=== PATIENT | male | born 1985 | race Caucasian/White ===

== ENCOUNTER 2019-02-27 16:58 | Emergency (ER) | payer OTHER ==
[~2019-02-27] VITALS: Ht 182.9 cm; Wt 98.4 kg
[2019-02-27 17:00] VITALS: BP 151/99
[2019-02-27] MEDS ORDERED: PRED20TA PO (17:31)
--- NOTE | 2019-02-27 17:31 | PHYS DOC ---
Past History Past Medical History: No Pertinent History Past Surgical History: No Surgical History Smoking: Non-smoker Alcohol Use: Occasionally Drug Use: None Adult General Chief Complaint Chief Complaint: ELBOW PROBLEM HPI HPI 33-year-old male presents with report of left elbow swelling and increased warmth which started yesterday. Patient reports on Thursday he had been overexerting with chopping wood all day. Denies known trauma to area. Denies fever or chills. Denies prior injury. Review of Systems Review of Systems Constitutional: Denies fever or chills Eyes: Denies redness or eye pain HENT: Denies nasal congestion or sore throat Respiratory: Denies cough or shortness of breath Cardiovascular: Denies chest pain or palpitations GI: Denies abdominal pain, nausea, or vomiting : Denies dysuria or hematuria Musculoskeletal: Denies back pain; reports left elbow pain and swelling Integument: Denies rash or skin lesions; reports some right elbow erythema Neurologic: Denies headache, focal weakness or sensory changes Complete systems were reviewed and found to be within normal limits, except as documented in this note. Current Medications Current Medications Current Medications Medications (Trade) Dose Ordered Sig/Benedict Start Time Stop Time Status Last Admin Dose Admin Dexamethasone (Decadron) 10 mg 1X ONCE 02/27/19 17:30 02/27/19 17:31 UNV Ketorolac Tromethamine (Toradol 30mg Vial) 30 mg 1X ONCE 02/27/19 17:30 02/27/19 17:31 UNV Allergies Allergies Allergies Coded Allergies Type Severity Reaction Last Updated Verified No Known Drug Allergies 02/27/19 No Physical Exam Physical Exam Constitutional: Well developed, well nourished, no acute distress, non-toxic appearance HENT: Normocephalic, atraumatic, oropharynx moist Eyes: Conjunctiva normal, no discharge Neck: Normal range of motion, no tenderness, supple Cardiovascular: Left radial pulses +2, cap refill less than 2 seconds Lungs & Thorax: No respiratory distress Skin: Warm, dry, mild erythema to left olecranon Extremities: Tenderness to palpation of left olecranon bursa, significant swelling/fluctuance, warmth, and mild erythema consistent for acute bursitis Neurologic: Alert and oriented X 3, no focal deficits noted Psychologic: Affect normal, judgement normal Current Patient Data Vital Signs Vital Signs Date Time Temp Pulse Resp B/P (MAP) Pulse Ox O2 Delivery O2 Flow Rate FiO2 02/27/19 17:00 98.2 85 16 98 Room Air EKG EKG [] Radiology/Procedures Radiology/Procedures [] Course & Med Decision Making Course & Med Decision Making Patient presents with history of present illness and physical exam concerning for left sided olecranon bursitis. Symptomatic treatment provided with ice pack, IM ketorolac, and oral dexamethasone. Derian bandage applied. Patient stable for discharge with outpatient follow-up with PCP/orthopedics. Orthopedic referral provided. Discussed findings and plan with patient and family, who acknowledge understanding and agreement. Dragon Disclaimer Dragon Disclaimer This electronic medical record was generated, in whole or in part, using a voice recognition dictation system. Splinting Splinting : Location: Left elbow Pre-Made Type: DERIAN bandage Pre-Proc Neuro Vasc Exam: normal Post-Proc Neuro Vasc Exam: normal, unchanged from pre-exam Departure Departure: Impression: Primary Impression: Olecranon bursitis of left elbow Disposition: 01 HOME, SELF-CARE Condition: STABLE Referrals: PCPLOW (PCP) FRANCISCO FERRER MD Patient Instructions: Olecranon Bursitis, [id number] Additional Instructions: Obtain KT tape and use [employer] video on how to place. Use over the counter Ibuprofen 600mg (three over the counter tabs) three times daily as needed for pain and discomfort. May use over the counter Tylenol (acetaminophen) 325-500mg tabs as needed between doses of ibuprofen for pain. ICE area 20 min on and then off for next 20 min for next few days. Scripts Prednisone (PREDNISONE) 20 Mg Tablet 2 TAB PO DAILY for Bursitis, #8 TAB Prov: IMTIAZ ROSADO DO 02/27/19 IMTIAZ ROSADO DO Feb 27, 2019 17:31
[2019-02-27] MEDS ORDERED: DEXAMETHASONE 4 MG TABLET PO ONE (18:00)
[2019-02-27] MEDS ORDERED: KETOROLAC 30 MG/ML VIAL. IM ONE (18:00)
== END 2019-02-27 17:40 | disposition home or self-care (01) ==
LOC: ER 16:58
DX: M70.22 Olecranon bursitis, left elbow (principal); Y93.89 Activity, other specified
CPT/HCPCS: 96372; 99283; J1885; J8540

== ENCOUNTER 2019-03-22 11:16 | Inpatient (IN) | payer OTHER ==
[~2019-03-22] VITALS: Ht 182.9 cm; Wt 102.2 kg
[~2019-03-22 11:16] MED LIST: PRED20TA PO
[2019-03-22] MEDS ORDERED: ONDANSETRON PF 4 MG/2 ML VIAL. ONE (11:47)
[2019-03-22] MEDS ORDERED: IV NORMAL SALINE 1,000ML 1,000 ML IV ONE (12:00)
[2019-03-22] MEDS ORDERED: ONDANSETRON PF 4 MG/2 ML VIAL. IVP ONE (12:00)
--- NOTE | 2019-03-22 12:11 | PHYS DOC ---
Past History Past Medical History: Other Additional Past Medical Histor: left elbow infection Past Surgical History: Other Additional Past Surgical Histo: testicular torsion Smoking: Non-smoker Alcohol Use: Occasionally Drug Use: None Adult General Chief Complaint Chief Complaint: NAUSEA/VOMITING/DIARRHEA HPI HPI 33-year-old male presents with vomiting and diarrhea. He woke up at 5:30 this mo rning with diarrhea and stomach cramping. Multiple episodes of diarrhea since that time and has had several episodes of vomiting. He is concerned about food poisoning. He did eat bratwurst overcooked on the grill yesterday for dinner. They were cooked one day prior to consumption. He has been having chills, but no measured fever. He is unable to keep down any liquids or solids. Review of Systems Review of Systems Constitutional: Denies fever or chills [] Eyes: Denies change in visual acuity, redness, or eye pain [] HENT: Denies nasal congestion or sore throat [] Respiratory: Denies cough or shortness of breath [] Cardiovascular: No additional information not addressed in HPI [] GI: Diffuse abdominal pain, nausea, vomiting, diarrhea [] : Denies dysuria or hematuria [] Musculoskeletal: Denies back pain or joint pain [] Integument: Denies rash or skin lesions [] Neurologic: Denies headache, focal weakness or sensory changes [] Endocrine: Denies polyuria or polydipsia [] All other systems were reviewed and found to be within normal limits, except as documented in this note. Current Medications Current Medications Current Medications Medications (Trade) Dose Ordered Sig/Benedict Start Time Stop Time Status Last Admin Dose Admin Ondansetron HCl (Zofran) 4 mg 1X ONCE 03/22/19 12:00 03/22/19 12:01 DC 03/22/19 11:50 4 MG Sodium Chloride 1,000 ml @ 1,000 mls/hr 1X ONCE 03/22/19 12:00 03/22/19 12:59 03/22/19 11:50 1,000 MLS/HR Allergies Allergies Allergies Coded Allergies Type Severity Reaction Last Updated Verified No Known Drug Allergies 03/22/19 No Physical Exam Physical Exam Constitutional: Well developed, well nourished, moderate acute distress, non- toxic appearance. [] HENT: Normocephalic, atraumatic, bilateral external ears normal, oropharynx dry, no oral exudates, nose normal. [] Eyes: PERRLA, EOMI, conjunctiva normal, no discharge. [] Neck: Normal range of motion, no tenderness, supple, no stridor. [] Cardiovascular:Heart rate regular rhythm, no murmur [] Lungs & Thorax: Bilateral breath sounds clear to auscultation [] Abdomen: Bowel sounds normal, soft, no tenderness, no masses, no pulsatile masses. [] Skin: Warm, pale, dry, no erythema, no rash. [] Back: No tenderness, no CVA tenderness. [] Extremities: No tenderness, no cyanosis, no clubbing, ROM intact, no edema. [] Neurologic: Alert and oriented X 3, normal motor function, normal sensory fun ction, no focal deficits noted. [] Psychologic: Affect normal, judgement normal, mood normal. [] Current Patient Data Vital Signs Vital Signs Date Time Temp Pulse Resp B/P (MAP) Pulse Ox O2 Delivery O2 Flow Rate FiO2 03/22/19 11:54 99 24 102/69 (80) 100 Room Air 03/22/19 11:26 99.2 EKG EKG [] Radiology/Procedures Radiology/Procedures [] Impressions: AP and Lateral Views of the Chest 03/22/2019 1:21 PM Indication: Acidosis Comparison: None Findings: Low lung volumes are noted which augment the cardiomediastinal silhouette and pulmonary vasculature. No pneumothorax or pleural effusion is identified. Heart size is within normal limits. No focal infiltrates are seen. No acute cardiopulmonary process is seen. IMPRESSION: Low lung volumes. Otherwise unremarkable chest radiograph Electronically signed by: Madhav Olsen MD (03/22/2019 1:58 PM) [id number] DICTATED AND SIGNED BY: MADHAV OLSEN MD DATE: 03/22/19 [id number] CC: GO HEATH DO; PCP,NO ~ EXAM: Abdomen and pelvis CT with intravenous contrast. HISTORY: Vomiting. Pain. TECHNIQUE: Computed tomographic images of the abdomen and pelvis were obtained following the administration of intravenous contrast. Multiplanar reformatting was performed. *One or more of the following individualized dose reduction techniques were utilized for this examination: 1. Automated exposure control. 2. Adjustment of the mA and/or kV according to patient size. 3. Use of iterative reconstruction technique. COMPARISON: None. FINDINGS: Evaluation of the lower thorax demonstrates no infiltrate or pleural effusion. The heart is normal in size. There are 2 tiny suspected cyst within the right hepatic lobe. These are too small to characterize. The gallbladder, pancreas, and adrenal glands are unremarkable. There are splenules adjacent to an otherwise unremarkable spleen. The kidneys are unremarkable. There is no evidence of appendicitis. There is nonspecific fluid-filled colon, a finding which can be seen with diarrhea. There is no evidence of acute colitis. There is no evidence of bowel obstruction. There is no lymphadenopathy. The aorta is normal in caliber. The bladder is nearly empty. There are prostate calcifications. There is no suspicious osseous lesion. There are few benign bone islands. IMPRESSION: 1. Nonspecific fluid-filled colon. This can be seen with diarrhea. There is no evidence of colitis. 2. Suspected tiny hepatic cysts, difficult to characterize given their size. Electronically signed by: Naomie Beltran MD (03/22/2019 2:06 PM) [facility] DICTATED AND SIGNED BY: NAOMIE BELTRAN MD DATE: 03/22/19 1401 CC: GO HEATH DO; PCP,LOW ~ Course & Med Decision Making Course & Med Decision Making Pertinent Labs and Imaging studies reviewed. (See chart for details) The patient appeared quite pale on arrival. I ordered a liter of normal saline and Zofran IV. The patient's labs are significant for a lactic acid of 4.3. His anion gap is 15. We will give him 30 mL/kg of fluids. The patient has not been drinking alcohol lately. He has had periods of heavy beer drinking, but not for over a month. No alcohol the last couple of days. He denies any drug use. He does not smoke. His CT of the abdomen and pelvis is unremarkable. His chest x- rays negative for acute findings. I will admit the patient for lactic acidosis. I spoke with Dr. Plascencia who has agreed to admit the patient. [] 37 minutes of critical care time was spent on this patient exclusive of other billable procedures. Dragon Disclaimer Dragon Disclaimer This electronic medical record was generated, in whole or in part, using a voice recognition dictation system. Departure Departure: Impression: Primary Impression: Lactic acidosis Disposition: ADMITTED INPATIENT Admitting Physician: Dominguez Plascencia Condition: STABLE Referrals: PCPLOW (PCP) Sepsis Assessment Date and Time of Assessment Date: Mar 22, 2019 Time: 12:57 Vital Signs Vital Signs Vital Signs Date Time Temp Pulse Resp B/P (MAP) Pulse Ox O2 Delivery O2 Flow Rate FiO2 03/22/19 11:54 99 24 102/69 (80) 100 Room Air 03/22/19 11:26 99.2 Respirations Respiratory Effort: Normal Respiratory Pattern: Normal Cardiovascular Pulse Rhythm: Regular HEART: No murmurs noted Lung Sounds Breath Sounds: Clear Capillary Refill Capillary Refill: Rt Hand < 3 seconds Peripheral Pulse Pulse Location: Monitor Pulse Assessment Method: Monitor Integumentary Skin: Dry Skin Moisture: Dry Skin Color: pallor Fingernail Color: WNL Sepsis Assessment Date and Time of Assessment Date: Mar 22, 2019 Time: 14:29 Fluid Challenge: Is the fluid challenge complet: No IBW Target Volume Used: No BMI > 30: Yes Blood Culture TIme: 12:12 Time Antibiotics Given: 14:08 Vital Signs Vital Signs Vital Signs Date Time Temp Pulse Resp B/P (MAP) Pulse Ox O2 Delivery O2 Flow Rate FiO2 03/22/19 11:54 99 24 102/69 (80) 100 Room Air 03/22/19 11:26 99.2 Temperature Source: Axillary Respirations Respiratory Effort: Normal Respiratory Pattern: Normal Cardiovascular Pulse Rhythm: Regular Heart: Nml rate, reg. rhythm Lung Sounds Breath Sounds: Clear Capillary Refill Capillary Refill: Rt Hand < 3 seconds Peripheral Pulse Pulse Location: Monitor Pulse Strength: Normal (2+) Pulse Assessment Method: Monitor Integumentary Skin: Warm Skin Moisture: Dry Skin Turgor: Normal Skin Color: no edema Fingernail Color: WNL GO HEATH DO Mar 22, 2019 12:11
[2019-03-22 12:17] LABS: ALBUMIN 3.9 g/dL (3.4-5.0); CALCIUM 9.5 mg/dL (8.5-10.1); CREATININE 1.2 mg/dL (0.7-1.3); GFR 68.9; POTASSIUM 4.2 mmol/L (3.5-5.1); TOTAL BILIRUBIN 1.1 mg/dL (0.2-1.0); TOTAL PROTEIN 7.7 g/dL (6.4-8.2)
[2019-03-22 12:24] LABS: BASO % 0 % (0-3); EOS # 0.1 x10^3/uL (0.0-0.7); EOS % 1 % (0-3); HEMATOCRIT 51.2 % (39.0-53.0); HEMOGLOBIN 17.1 g/dL (13.0-17.5); LYMPH # 0.3 x10^3/uL (1.0-4.8); LYMPH % 3 % (24-48); MEAN CORPUSCULAR HEMOGLOBIN 31 pg (25-35); MEAN CORPUSCULAR HGB CONC 33 g/dL (31-37); MEAN CORPUSCULAR VOLUME 92 fL (79-100); MONO # 0.5 x10^3/uL (0.0-1.1); MONO % 5 % (0-9); NEUT # 9.8 x10^3uL (1.8-7.7); NEUT % 91 % (31-73); PLATELET COUNT 219 x10^3/uL (140-400); RED BLOOD COUNT 5.56 x10^6/uL (4.30-5.70); RED CELL DISTRIBUTION WIDTH 12.9 % (11.5-14.5); WHITE BLOOD COUNT 10.7 x10^3/uL (4.0-11.0)
[2019-03-22] MEDS ORDERED: IOHEXOL 300 MG/ML 75 ML VIAL. IV ONE (13:30)
[2019-03-22 13:34] LABS: BACTERIA,URINE 0 /HPF (0-FEW); BILIRUBIN,URINE NEG (NEG); CLARITY,URINE HAZY; COLOR,URINE AMBER; GLUCOSE,URINE NEG (NEG); NITRITE,URINE NEG (NEG); RBC,URINE OCC /HPF (0-2); UROBILINOGEN,URINE 0.2 mg/dL (0.2 mg/dL)
[2019-03-22 13:36] LABS: AMPHETAMINE/METHAMPHETAMINE NEG (NEG); BARBITURATES NEG (NEG); BENZODIAZEPINES NEG (NEG); CANNABINOIDS NEG (NEG); COCAINE NEG (NEG); METHADONE NEG (NEG); OPIATES NEG (NEG); PHENCYCLIDINE NEG (NEG)
[2019-03-22] MEDS: NORMAL SALINE IV SCH ×4 (13:54→16:00)
--- NOTE | 2019-03-22 14:01 | RAD ---
AP and Lateral Views of the Chest 03/22/2019 1:21 PM Indication: Acidosis Comparison: None Findings: Low lung volumes are noted which augment the cardiomediastinal silhouette and pulmonary vasculature. No pneumothorax or pleural effusion is identified. Heart size is within normal limits. No focal infiltrates are seen. No acute cardiopulmonary process is seen. IMPRESSION: Low lung volumes. Otherwise unremarkable chest radiograph Electronically signed by: Madhav Sheppard MD (03/22/2019 1:58 PM) [facility]
[2019-03-22] MEDS ORDERED: IV NORMAL SALINE 50ML 50 ML ONE (14:02)
[2019-03-22] MEDS ORDERED: cefTRIAXone SODIUM 1 GM VIAL ONE (14:02)
--- NOTE | 2019-03-22 14:09 | RAD ---
EXAM: Abdomen and pelvis CT with intravenous contrast. HISTORY: Vomiting. Pain. TECHNIQUE: Computed tomographic images of the abdomen and pelvis were obtained following the administration of intravenous contrast. Multiplanar reformatting was performed. *One or more of the following individualized dose reduction techniques were utilized for this examination: 1. Automated exposure control. 2. Adjustment of the mA and/or kV according to patient size. 3. Use of iterative reconstruction technique. COMPARISON: None. FINDINGS: Evaluation of the lower thorax demonstrates no infiltrate or pleural effusion. The heart is normal in size. There are 2 tiny suspected cyst within the right hepatic lobe. These are too small to characterize. The gallbladder, pancreas, and adrenal glands are unremarkable. There are splenules adjacent to an otherwise unremarkable spleen. The kidneys are unremarkable. There is no evidence of appendicitis. There is nonspecific fluid-filled colon, a finding which can be seen with diarrhea. There is no evidence of acute colitis. There is no evidence of bowel obstruction. There is no lymphadenopathy. The aorta is normal in caliber. The bladder is nearly empty. There are prostate calcifications. There is no suspicious osseous lesion. There are few benign bone islands. IMPRESSION: 1. Nonspecific fluid-filled colon. This can be seen with diarrhea. There is no evidence of colitis. 2. Suspected tiny hepatic cysts, difficult to characterize given their size. Electronically signed by: Naomie Stafford MD (03/22/2019 2:06 PM) [facility]
--- NOTE | 2019-03-22 15:48 | NUR ---
The patient, MUKESH GONGORA, 33 y/o, M admitted by KATERINA LOPEZ MD, was given written information regarding hospital policies, unit procedures and contact persons. Valuables were checked and documented.
[2019-03-22 16:01] VITALS: BP 119/74
[2019-03-22] MEDS: IV NORMAL SALINE 1,000ML 1,000 ML IV SCH (16:15)
[2019-03-22] MEDS: ACETAMINOPHEN 325 MG TABLET PO PRN (18:29)
[2019-03-22] MEDS: ONDANSETRON PF 4 MG/2 ML VIAL. IVP PRN (19:03)
[2019-03-22 19:36] VITALS: BP 100/63
[2019-03-22 23:30] VITALS: BP 102/49
[2019-03-23] MEDS: ONDANSETRON PF 4 MG/2 ML VIAL. IVP PRN ×5 (00:13→22:37)
[2019-03-23] MEDS: ACETAMINOPHEN 325 MG TABLET PO PRN ×3 (00:14→20:10)
[2019-03-23] MEDS: IV NORMAL SALINE 1,000ML 1,000 ML IV SCH (00:15)
[2019-03-23 05:14] VITALS: BP 133/66
[2019-03-23 07:56] LABS: HEMATOCRIT 41.6 % (39.0-53.0); HEMOGLOBIN 13.8 g/dL (13.0-17.5); RED BLOOD COUNT 4.52 x10^6/uL (4.30-5.70); RED CELL DISTRIBUTION WIDTH 13.2 % (11.5-14.5)
[2019-03-23 08:07] LABS: CALCIUM 7.9 mg/dL (8.5-10.1); CREATININE 1.1 mg/dL (0.7-1.3); GFR 76.2; POTASSIUM 3.7 mmol/L (3.5-5.1)
[2019-03-23 10:39] VITALS: BP 116/74
[2019-03-23] MEDS ORDERED: BISMUTH SUBSALICYLATE 262 MG/15 ML ORAL.SUSP 236ML BOTTLE. PO PRN (12:00)
[2019-03-23] MEDS: CIPROFLOXACIN 400MG PREMIX 200 ML IV SCH (12:10)
--- NOTE | 2019-03-23 12:32 | HP ---
ADMIT DATE: 03/22/2019 HISTORY OF PRESENT ILLNESS: The patient is a 33-year-old male patient who came to the Emergency Room yesterday with recurrent bouts of nausea, vomiting as well as diarrhea. He apparently started at around 5:30 in the morning the day of admission with diarrhea and stomach cramping, multiple episodes of diarrhea since that time. Has had several episodes of vomiting. He is concerned about food poisoning. He did eat bratwurst overcooked on the grill yesterday for dinner. They were cooked one day prior to consumption. He has been having chills, but no measured fever. He is unable to keep down any liquids or solids. He was evaluated in the Emergency Room and apparently was somewhat tachycardic, hypertensive. His lab work showed that he has lactic acidosis, lactic acid of 4.2 and his bicarbonate was 19, and anion gap of 15. He was also slightly dehydrated and felt dizzy and therefore he was admitted, started on IV fluid, IV antibiotic and was admitted for further evaluation and treatment. His past medical history is unremarkable. He stated that none of his family including his , daughter, and 2 sons have any similar symptoms. He uses city water and was treated for left olecranon bursitis with a course of prednisone. Has not had any antibiotics. Has been taking also nonsteroidal anti-inflammatory medication. Apparently, he has been out of the country for almost 8-1/2 years, has been in countries in [place], [place] and his most recent stop was in [place], where he spent about a year and half. He arrived to [facility] on 02/18/2019. PAST MEDICAL HISTORY: Unremarkable. PAST SURGICAL HISTORY: Significant for testicular torsion. ALLERGIES: He has no known drug allergies. MEDICATIONS: He is not on any medication by prescription. He was taking steroids recently for what seems to be olecranon bursitis. FAMILY HISTORY: He has 4 sisters and 2 brothers, all younger. His father at the age of 49 because of motorcycle accident and alcoholism. Mother is still alive, but does not keep in touch with her. SOCIAL HISTORY: He is , has 1 daughter and 2 sons. He does not smoke, drinks alcohol when he was outside of [place] and none here according to him. He does not use any drugs. He is a [employer] dealing with [employer]. REVIEW OF SYSTEMS: The patient denied any blurring of vision, cataract, glaucoma or macular degeneration. Denied any earache, tinnitus or sensorineural deafness. Denied any nosebleeds, stuffy nose or postnasal drip. Denied any sore throat, sore tongue, toothache, hoarseness of voice or difficulty swallowing. Did obviously complain of nausea, vomiting as well as diarrhea, but denied any hematemesis, melena or hematochezia. Denied any dysuria, frequency or hematuria. Denied any chest pain or shortness of breath, but did complain of dizziness and lightheadedness. PHYSICAL EXAMINATION: GENERAL: On arrival to the Emergency Room, he was slightly tachypneic, but there was no pallor, jaundice, cyanosis or thyromegaly. No jugular venous distention. No limb edema. VITAL SIGNS: Her heart rate was 103, blood pressure was 102/69, temperature was 99.2, respiratory rate was 34, and oxygen saturation was 100% on room air. HEAD, EYES, EARS, NOSE AND THROAT: Showed normocephalic, atraumatic. NECK: Supple. HEART: Showed normal first and second heart sounds. No gallop, rub or murmur. CHEST: Clear to auscultation. No crepitation or rhonchi. ABDOMEN: Distended, soft, nontender. NEUROLOGIC: He was awake, alert, responding appropriately. All cranial nerves intact. EXTREMITIES: He moves extremities without difficulty. He ambulates without assistance or assistive devices. LABORATORY DATA: His lab work on admission showed a serum sodium 141, potassium 4.2, chloride 107, bicarbonate 19, anion gap of 15, BUN 15, creatinine 1.2, estimated GFR was 69 mL per minute, his glucose was 111. Lactic acid was 4.2, calcium was 9.5. Total bilirubin was slightly elevated; however, AST, ALT, alkaline phosphatase were normal. Total protein was 7.7, albumin was 3.9. Serum lipase was 159. His white cell count was 10,700, hemoglobin 17, hematocrit 51, MCV 92, and platelet count of 219,000 with normal manual differential. Urinalysis was essentially unremarkable. Toxic screen was essentially negative. He has had a chest x-ray which was unremarkable and CT scan of the abdomen and pelvis showed that there is nonspecific fluid-filled colon. This can be seen with diarrhea. There is no evidence of colitis. Suspected tiny hepatic cysts difficult to characterize given their size. ASSESSMENT AND PLAN: The patient was admitted with acute gastroenteritis. We will continue with IV fluid, continue with IV ceftriaxone as well as IV Flagyl. KATERINA LOPEZ MD DR: HIGINIO/elina JOB#: [id number] / [id number]
[2019-03-23] MEDS: POTASSIUM CL 20MEQ D5-0.2%NACL 1,000 ML IV SCH (13:16)
[2019-03-23 15:07] VITALS: BP 128/79
[2019-03-23] MEDS: BISMUTH SUBSALICYLATE 262 MG/15 ML ORAL.SUSP 236ML BOTTLE. PO PRN ×2 (17:27→20:09)
[2019-03-23 19:35] VITALS: BP 137/90
[2019-03-23] MEDS: LACTOBACILLUS RHAMNOSUS GG 1 CAPSULE. PO SCH (20:10)
--- NOTE | 2019-03-23 21:33 | PN ---
DATE: 03/23/2019 SUBJECTIVE: The patient was admitted yesterday with recurrent bouts of nausea, vomiting, diarrhea, dizziness and abdominal cramping. His lab work showed clearly he is very dehydrated. His hemoglobin and hematocrit were 17 and 51. Has lactic acidosis with a bicarb of 19, anion gap of 15. He was admitted, was aggressively rehydrated, also started on IV ceftriaxone and Flagyl added. When I saw him today, he continued to have diarrhea, although he has had no further episodes of nausea, vomiting, no dizziness or lightheadedness, no abdominal pain. PHYSICAL EXAMINATION: GENERAL: When I examined him, he was resting slightly propped up in bed, in no apparent respiratory distress. No pallor, jaundice, cyanosis or thyromegaly. No jugular venous distension. No limb edema. VITAL SIGNS: His heart rate was 77, blood pressure was 116/74, temperature was 98.1, respiratory rate 20 and oxygen saturation was 95%. The rest of clinical exam is stable. LABORATORY DATA: His lab work this morning, his intake was 5500, no output was recorded. His lab work this morning showed a serum sodium of 44, potassium 3.7, chloride 110, bicarbonate 26, anion gap of 8, BUN 13, creatinine 1.1, estimated GFR was 76 mL per minute. His glucose was 109. Calcium was 7.9. His white cell count is down to 5000, hemoglobin 13.8, hematocrit 41, MCV 92 and platelet count of 151,000. ASSESSMENT: Acute gastroenteritis. The nausea and vomiting has largely subsided; however, he continued to have diarrhea. CT scan showed no evidence of colitis or diverticulitis. The patient has been outside of [place] for almost 8-1/2 years, has been in areas of [place], [place] and most recently in [place] and left this country on 02/18/2019 and he was drinking city water, none of the other family members are affected and he has not had any antibiotics for the past few months. PLAN: My plan is to switch his antibiotic to ciprofloxacin as well as continue with Flagyl. I will add also Pepto-Bismol together with IV fluid and we will monitor his lab works again tomorrow and if he has no further episodes of diarrhea and his lab works remains stable, he can be discharged home. KATERINA LOPEZ MD DR: Logan JOB#: [id number] / [id number]
[2019-03-23 22:40] VITALS: BP 136/84
[2019-03-24] MEDS: POTASSIUM CL 20MEQ D5-0.2%NACL 1,000 ML IV SCH ×2 (00:29→10:41)
[2019-03-24] MEDS: CIPROFLOXACIN 400MG PREMIX 200 ML IV SCH ×2 (00:30→11:31)
[2019-03-24] MEDS: BISMUTH SUBSALICYLATE 262 MG/15 ML ORAL.SUSP 236ML BOTTLE. PO PRN ×2 (00:39→09:25)
[2019-03-24] MEDS: ACETAMINOPHEN 325 MG TABLET PO PRN (05:17)
[2019-03-24] MEDS: ONDANSETRON PF 4 MG/2 ML VIAL. IVP PRN (05:17)
[2019-03-24 05:25] VITALS: BP 138/69
[2019-03-24 05:48] VITALS: BP 138/69
[2019-03-24 06:26] LABS: HEMATOCRIT 41.9 % (39.0-53.0); HEMOGLOBIN 14.1 g/dL (13.0-17.5); RED BLOOD COUNT 4.55 x10^6/uL (4.30-5.70); RED CELL DISTRIBUTION WIDTH 13.3 % (11.5-14.5); WHITE BLOOD COUNT 4.7 x10^3/uL (4.0-11.0)
[2019-03-24 06:35] LABS: CALCIUM 8.4 mg/dL (8.5-10.1); CREATININE 1.2 mg/dL (0.7-1.3); GFR 68.9; POTASSIUM 3.4 mmol/L (3.5-5.1)
[2019-03-24] MEDS: LACTOBACILLUS RHAMNOSUS GG 1 CAPSULE. PO SCH (09:23)
[2019-03-24] MEDS ORDERED: CIPR500T94 PO (11:49)
[2019-03-24] MEDS ORDERED: METR250T PO (11:49)
--- NOTE | 2019-03-24 12:00 | NUR ---
Pt is alert and oriented x 4. Pt is able to state wants and desires. Pt is up as tolerated, independent .Pt denies any nausea and vomitting at this time. Pt has had minimal diarrhea today, 20 mEq K+ with D5 0.25 NS running at 150 mL/hr. Pt receiving Ciproflaxicin piggyback infusion 200 mL/hr. Pt scheduled to be discharged today.
--- NOTE | 2019-03-24 14:14 | NUR ---
Discharge Note: MUKESH GONGORA [address] Discharge instructions and discharge home medications reviewed with Patient and a copy given. All questions have been answered and understanding verbalized. The following instructions and handouts were given: Follow up with Primary Care Provider within 7-10 days or sooner if needed. Discontinued lines and drains: peripheral IV discontinued, catheter tip intact, pressure dressing applied. No complications noted. Patient discharged to home prior to admission
--- NOTE | 2019-03-24 17:14 | DS ---
DATE OF DISCHARGE: 03/24/2019 HOSPITAL COURSE: The patient is a 33-year-old male patient who was admitted with recurrent bouts of nausea, vomiting, diarrhea and abdominal cramping. He also complained of dizziness and lightheadedness. He did have also lactic acidosis with lactic acid of 4.2. He was dehydrated and has slightly elevated creatinine, was treated with IV fluid, IV antibiotic in the form of Cipro and Flagyl and he did actually very well, has had no further episodes of nausea, vomiting, no abdominal cramping, no dizziness or lightheadedness. Did have loose bowel movement, but much less than before, has been up and about, has tolerated his regular diet without any problem, and therefore, a decision was made to discharge him home to continue treatment with oral antibiotic in the form of Flagyl and Cipro for another 5 days. I have encouraged to drink plenty of fluid. PHYSICAL EXAMINATION: GENERAL: When I saw him this morning, he was resting slightly propped up in bed, in no apparent respiratory distress, pale. No jaundice, cyanosis or thyromegaly. No jugular venous distention. No limb edema. VITAL SIGNS: His heart rate was 66, blood pressure was 138/69, temperature was 97.8, respiratory rate 20, and oxygen saturation was 94%. The rest of clinical examination is stable. His intake was 5500, no output was recorded. LABORATORY DATA: This morning showed a serum sodium 144, potassium 3.4, chloride 108, bicarbonate 28, anion gap of 8, BUN 6, creatinine 1.2, estimated GFR was 68 mL per minute, his glucose was 103, calcium was 8.4. White cell count was 4700, hemoglobin 14, hematocrit 42, MCV 92, and platelet count of 154,000. FINAL DISCHARGE DIAGNOSES: Probably infectious gastroenteritis, dehydration, lactic acidosis, all resolved. KATERINA LOPEZ MD DR: HIGINIO/elina JOB#: [id number] / [id number]
== END 2019-03-24 14:19 | disposition home or self-care (01) | DRG 392 ==
LOC: ER 11:16 → 1 SOUTH 14:20
PROVIDERS: ADMIT Internal Medicine; ATTEND Internal Medicine
DX: A09 Infectious gastroenteritis and colitis, unspecified (principal); E87.2 Acidosis; E86.0 Dehydration
CPT/HCPCS: 36415; 71046; 74177; 80048; 80053; 80307; 81001; 83605; 83690; 85025; 85027; 87040; 96361; 96365; 96375; J0696; J0744; J2405; J3490; Q9967; 99291-25; J7030